=== PATIENT | female | born 1955 | race Caucasian/White ===

== ENCOUNTER 2024-06-16 15:07 | Inpatient (IN) | payer OTHER ==
[2024-06-16 15:24] VITALS: BMI 37.0
[2024-06-16 15:57] VITALS: O2SAT 97
[2024-06-16] MEDS ORDERED: DIPHENHYDRAMINE 25 MG TAB/CAP PO PRN (16:49)
--- NOTE | 2024-06-16 16:57 | P.HP ---
Certification for Inpatient Patient admitted to: Inpatient With expected LOS: >2 Midnights Practitioner: I am a practitioner with admitting privileges, knowledge of patient current condition, hospital course, and medical plan of care. Services: Services provided to patient in accordance with Admission requirements found in Title 42 Section 412.3 of the Code of Federal Regulations Patient History Date of Service: 06/16/24 Primary Care Provider: Trey Reason for admission: osteomyelitis of the right heel History of Present Illness: Patient was being seen in the [facility] wound care center by Dr. Calzada. She had an MRI done at [facility] which showed osteomyelitis. Dr. Calzada took a tissue cultures. I was called for the antibiotic care. Decided to direct admit her and start iv antibiotics. She has diabetic neuropathy. Which makes her more of a high risk Allergies morphine Allergy (Verified 09/04/17 08:35) hives, N/V Home Medications: Diphenhydramine [Benadryl Tab/Cap] 25 mg PO PRN PRN 07/09/17 Metformin HCl [Glucophage] 1,000 mg PO BID 07/09/17 Acetaminophen with Codeine [Tylenol with Codeine #4 Tablet] 1 each PO TID PRN 09/03/17 Gabapentin [Neurontin] 900 mg PO TID 09/03/17 Dapagliflozin Propanediol [Farxiga] 5 mg PO DAILY 06/16/24 Meloxicam 7.5 mg PO BID 06/16/24 Pregabalin 75 mg PO DAILY 06/16/24 Sertraline [Zoloft] 50 mg PO DAILY 06/16/24 - Past Medical/Surgical History Has patient received pneumonia vaccine in the past: Yes Diabetic: Yes -: DM -: Neuropathy -: Insomnia -: hysterectomy 2004 -: nerve surgery r/t spine - Family History Mother -: Diabetes, Cancer Notes: hepatic CA Father -: Heart disease, Lung disease, Cancer Notes: lung CA Sister -: Lung disease, Cancer Notes: lung CA - Social History Smoking Status: Never smoker Alcohol use: No CD- Drugs: No Caffeine use: Yes Place of Residence: Home Review of Systems 10-point ROS is otherwise unremarkable Integumentary: Other (diabetic ulcer) Physical Examination - Physical Exam General: Alert, In no apparent distress HEENT: Atraumatic, PERRLA, Mucous membr. moist/pink, EOMI, Sclerae nonicteric Neck: Supple, 2+ carotid pulse no bruit, No LAD, Without JVD or thyroid abnormality Respiratory: Clear to auscultation bilaterally, Normal air movement Cardiovascular: Regular rate/rhythm, Normal S1 S2 Gastrointestinal: Normal bowel sounds, No tenderness Musculoskeletal: No tenderness Integumentary: No rashes, Diabetic ulcer Neurological: Normal gait, Normal speech, Normal strength at 5/5 x4 extr, Normal tone, Normal affect Lymphatics: No axilla or inguinal lymphadenopathy Assessment and Plan - Problems (Diagnosis) (1) Osteomyelitis due to type 2 diabetes mellitus Current Visit: Yes Status: Acute Plan: Start unasyn. get her records from [facility]. Will consult and Dr. Dominguez. I don't believe she will need surgery. Will lplace a picc line. Need to get cultures to pick appropriate wound care (2) Type 2 diabetes mellitus with diabetic neuropathy, unspecified Current Visit: Yes Status: Acute Plan: will start her on her home metformin. Carb controlled diet. ISS to cover. will check an A1c on the patient Qualifiers: Diabetes mellitus chcf insulin use: with intermission coordinator use Qualified Code(s): E11.40 - Type 2 diabetes mellitus with diabetic neuropathy, unspecified; Z79.4 - half-way (current) use of insulin - Advance Directives Does patient have a Living Will: No Does patient have a Durable POA for Healthcare: No - Code Status/Comfort Care Code Status Assessed: Yes Code Status: Full Code Physician Review: Patient Assessed, Agree with Above Assessment and Plan Critical Care: No Time Spent Managing Pts Care (In Minutes): 75
[2024-06-16] MEDS ORDERED: ENOXAPARIN 40 MG/0.4 ML SQ SCH (17:00)
[2024-06-16] MEDS ORDERED: AMPICILLIN/SULBACT 1.5 GM in NA CHLORIDE 0.9% 100 ML IVPB SCH (17:00)
[2024-06-16] MEDS: METFORMIN HCL 500 MG TAB PO SCH (17:07)
[2024-06-16] MEDS: NA CHLORIDE 0.9% 1,000 ML IV SCH (17:08)
[2024-06-16] MEDS: HYDROMORPHONE HCL 0.5 MG/0.5 ML INJ IV PRN (17:08)
--- NOTE | 2024-06-16 18:15 | RAD REPORT ---
EXAMINATION: XR Foot Right 3 View CLINICAL INDICATION: Female, 69 years old. [facility] MAIN osteomyelitis TECHNIQUE: 3 view radiographs of the right foot were obtained. COMPARISON: 04/29/2022 FINDINGS: Stable alignment of the calcaneus with residual deformity following healing fractures along the proximal body, with some depressed fragments along the middle to posterior talocalcaneal facets. Soft tissue swelling at the sole of the foot. Skin irregularity, wound, and hyperdense debris at the sole of the posterior hindfoot, with underlying some calcaneal cortical irregularity along the plantar aspect, seen only on the lateral view, apparent. Hammertoe deformities of the toes. Degen erative changes of the midfoot, and first metatarsophalangeal articulation up to moderate. IMPRESSION: Calcaneal fracture malunion as above. Osseous irregularity along the plantar aspect of the mid calcaneus, may reflect sequelae of fracture healing versus mild changes of osteomyelitis. MRI would provide improved assessment.
[2024-06-16] MEDS: AMPICILLIN/SULBACT 3 GM in NA CHLORIDE 0.9% 100 ML IVPB SCH (18:23)
[2024-06-16] MEDS: MELOXICAM 7.5 MG TAB PO SCH (20:41)
[2024-06-16] MEDS: Mupirocin NASAL 2 APPL/1 GM TUBE NAS SCH (20:41)
[2024-06-16] MEDS: GABAPENTIN 300 MG CAP PO SCH (20:41)
[2024-06-16] MEDS: INSULIN REGULAR (HUMAN) 100 UNIT/ML SQ SCH (20:41)
--- NOTE | 2024-06-16 20:50 | RAD REPORT ---
EXAMINATION: ONE VIEW CHEST XR CLINICAL INDICATION: Female, 69 years old.,Verify PICC placement TECHNIQUE: Frontal chest projection is submitted. Examination is limited by patient positioning and t echnique. COMPARISON: None. FINDINGS: Right arm PICC with tip projecting at the superior cavoatrial junction. The lungs are well inflated a nd clear. No pneumothorax or sizable effusion. The heart is normal in size. Mediastinal contours are unremarkable. IMPRESSION: Satisfactory right arm PICC position. No acute intrathoracic abnormalities.
[2024-06-16] MEDS: TRAZODONE 50 MG TABLET PO SCH (21:15)
[2024-06-17] MEDS: AMPICILLIN/SULBACT 3 GM in NA CHLORIDE 0.9% 100 ML IV SCH ×2 (00:52→16:08)
[2024-06-17] MEDS: PANTOPRAZOLE 40MG TABLET PO SCH (06:16)
[2024-06-17 06:52] LABS: Absolute Basophils 0.1 K/uL (0-0.5); Absolute Eosinophils 0.1 K/uL (0-0.5); Absolute Lymphocytes (CBC) 2.4 K/uL (0.7-4.9); Absolute Monocytes 0.4 K/uL (0.1-1.3); Absolute Neutrophil 2.4 K/uL (1.8-8.0); Basophils % 1.3 % (0-1.3); Eosinophils % 2.4 % (0-4.4); Hematocrit 41.4 % (36.0-45.0); Hemoglobin 13.9 g/dL (12.0-15.0); Lymphocytes % 43.9 % (15.3-44.8); MCH 29.1 pg (27.0-35.0); MCHC 33.5 g/dL (32.0-36.0); MCV 86.6 fL (80-100); MPV 6.4 fL (7.6-11.3); Neutrophils % 45.4 % (41.7-73.7); Nucleated Red Blood Cells % 0.2 % (0-0); Platelets 294 thou/uL (152-406); RBC Red Blood Cell Count 4.78 M/uL (3.86-4.86); Red Cell Distribution Width 14.1 % (12.1-15.2)
[2024-06-17 07:12] LABS: Albumin 3.2 g/dL (3.4-5.0); Albumin/Globulin Ratio 0.7 (1.1-1.8); Anion Gap 9.1 mEq/L (5.0-15.0); Bilirubin Total 0.7 mg/dL (0.2-1.0); Globulin 4.3 g/dL (2.3-3.5); Potassium 4.1 mEq/L (3.5-5.1); Protein, Total 7.5 g/dL (6.4-8.2); Thyroid Stimulating Hormone 1.33 uIU/mL (0.358-3.740)
[2024-06-17] MEDS: ENOXAPARIN 40 MG/0.4 ML SQ SCH (08:13)
[2024-06-17] MEDS: SERTRALINE HCL 50 MG TAB PO SCH (08:14)
[2024-06-17] MEDS: PREGABALIN 75 MG CAP PO SCH (08:14)
--- NOTE | 2024-06-17 08:36 | P.CNS ---
Date of Consult: 06/17/24 Reason for Consult: right heel wound Primary Care Provider: Trey Chief Complaint: osteomyelitis of the right heel Allergies morphine Allergy (Verified 09/04/17 08:35) hives, N/V Home Medications: Diphenhydramine [Benadryl Tab/Cap] 25 mg PO PRN PRN 07/09/17 Metformin HCl [Glucophage] 1,000 mg PO BID 07/09/17 Acetaminophen with Codeine [Tylenol with Codeine #4 Tablet] 1 each PO TID PRN 09/03/17 Gabapentin [Neurontin] 900 mg PO TID 09/03/17 Dapagliflozin Propanediol [Farxiga] 5 mg PO DAILY 06/16/24 Meloxicam 7.5 mg PO BID 06/16/24 Pregabalin 75 mg PO DAILY 06/16/24 Sertraline [Zoloft] 50 mg PO DAILY 06/16/24 - Past Medical/Surgical History Diabetic: Yes -: DM -: Neuropathy -: Insomnia -: hysterectomy 2004 -: nerve surgery r/t spine - Family History Mother Medical History: Diabetes, Cancer Notes: hepatic CA Father Medical History: Heart disease, Lung disease, Cancer Notes: lung CA Sister Medical History: Lung disease, Cancer Notes: lung CA - Social History Alcohol use: No CD- Drugs: No Caffeine use: Yes Place of Residence: Home Review of Systems 10-point ROS is otherwise unremarkable Physical Examination Temp Pulse Resp BP Pulse Ox 96.7 F L 84 16 116/64 95 06/17/24 04:00 06/17/24 04:00 06/17/24 08:15 06/17/24 04:00 06/17/24 08:15 General: Alert, In no apparent distress, Oriented x3 Cardiovascular: No edema, Normal pulses Capillary refill: <2 Seconds Musculoskeletal: No clubbing, No swelling, No contractures, No erythema, No tenderness, No warmth Integumentary: No rashes, Diabetic ulcer (ulceration right plantar heel with large granulation, undermining at 12:00, no purulence) Neurological: Abnormal sensation (absent proprioceptive and protective sensations bilateral lower extremity) Laboratory Data (last 24 hrs) 06/17/24 06/17/24 06:37 06:37 WBC 5.40 Hgb 13.9 Hct 41.4 Plt Count 294 Sodium 137 Potassium 4.1 BUN 13 Creatinine 0.54 L Glucose 145 H Total Bilirubin 0.7 AST 11 L ALT 19 Alkaline Phosphatase 67 Imagings Data: Previous mri positive for chronic osteomyelitis - Problems (1) Osteomyelitis due to type 2 diabetes mellitus Current Visit: Yes Status: Acute (2) Type 2 diabetes mellitus with diabetic neuropathy, unspecified Current Visit: Yes Status: Acute Qualifiers: Diabetes mellitus button station worker insulin use: with button station worker use Qualified Code(s): E11.40 - Type 2 diabetes mellitus with diabetic neuropathy, unspecified; Z79.4 - prison (current) use of insulin Conclusions/Impression: 1. PAcking of wound with vashe wet to dry daily 2. iv antibiotics for 6 weeks 3. Patient would benefit from hyperbaric oxygen therapy 4. Discussed wound vac but patient doesn't feel that she could be nonweightbearing to right heel
--- NOTE | 2024-06-17 08:41 | P.PN ---
Subjective Date of Service: 06/17/24 Primary Care Provider: Trey Chief Complaint: osteomyelitis of the right heel Subjective: No new changes Review of Systems 10-point ROS is otherwise unremarkable Physical Examination - Vital Signs Temperature: 96.7 F Blood Pressure: 116/64 Pulse: 84 Respirations: 16 Pulse Ox (%): 95 - Physical Exam General: Alert, In no apparent distress HEENT: Atraumatic, PERRLA, EOMI Neck: Supple, JVD not distended Respiratory: Clear to auscultation bilaterally, Normal air movement Cardiovascular: Regular rate/rhythm, Normal S1 S2 Gastrointestinal: Normal bowel sounds, No tenderness Musculoskeletal: No tenderness Integumentary: No rashes Neurological: Normal speech, Normal tone, Normal affect Lymphatics: No axilla or inguinal lymphadenopathy - Studies Laboratory Data (last 24 hrs) 06/17/24 06/17/24 06:37 06:37 WBC 5.40 Hgb 13.9 Hct 41.4 Plt Count 294 Sodium 137 Potassium 4.1 BUN 13 Creatinine 0.54 L Glucose 145 H Total Bilirubin 0.7 AST 11 L ALT 19 Alkaline Phosphatase 67 Assessment And Plan - Current Problems (Diagnosis) (1) Osteomyelitis due to type 2 diabetes mellitus Current Visit: Yes Status: Acute Plan: Start unasyn. get her records from [facility]. Will consult and Dr. Dominguez. I don't believe she will need surgery. Will lplace a picc line. Need to get cultures to pick appropriate wound care (2) Type 2 diabetes mellitus with diabetic neuropathy, unspecified Current Visit: Yes Status: Acute Plan: will start her on her home metformin. Carb controlled diet. ISS to cover. will check an A1c on the patient Qualifiers: Diabetes mellitus terminal worker insulin use: with group home use Qualified Code(s): E11.40 - Type 2 diabetes mellitus with diabetic neuropathy, unspecified; Z79.4 - ocean transportation intermediary (current) use of insulin Discharge Plan: Home Plan to discharge in: 24 Hours - Code Status/Comfort Care Code Status Assessed: No Physician Review: Patient Assessed, Agree with Above Assessment and Plan Critical Care: No Time Spent Managing PTS Care (In Minutes): 20
[2024-06-17] MEDS: DAPAGLIFLOZIN PROPANEDIOL 5 MG PO SCH (09:00)
[2024-06-17] MEDS: ONDANSETRON 4 MG/2 ML VIAL IV PRN (13:36)
[2024-06-17] MEDS: CODEINE 30MG/APAP 300MG TAB PO PRN (13:45)
--- NOTE | 2024-06-17 19:13 | CON ---
Date of Consultation: 06/17/2024 History Of Present Illness: Ms. Villegas is a female that we know since the patient was in [facility], found to have an open wound on the right heel area. Then, patient was seen 2 days ago at the [facility], obtained an MRI that shows osteomyelitis. I discussed the case with Dr. Yang, the primary doctor about the ways how to start her on IV antibiotics. The patient admitted to the [facility] for IV antibiotics and options. Surgical consult was obtained. Past Medical History: Include diabetes, neuropathy, insomnia. Past Surgical History: Include hysterectomy. Family History: Diabetes. Social History: She does not smoke. She does not drink alcohol. Allergies: REVIEWED. Medications: Reviewed. Review of Systems: Right heel open ulcer. No shortness of breath. No chest pain. No fever. Review of systems 10 poin ts otherwise unremarkable. Physical Examination: General: Reviewed. Patient is awake and alert. HEENT: Pupils are equal and reactive, anicteric. Neck: Supple. Abdomen: Soft and depressible. Integumentary: Shows the right plantar heel ulcer all the way down to the calcaneus bone. No purule nt discharge. Good granulation tissue. Imaging: MRI shows osteomyelitis of the right calcaneus region. I do want the result. We have them at [facility] [place]. Blood work reviewed. Plan: From the surgical standpoint, continue same dressing changes and we will follow up the patient at the [facility] when discharged. We rediscussed with her not only IV antibiotics treatm ent for osteomyelitis, but the possibility of hyperbaric treatment. The pros and cons discussed with the patient. We are not ready for that yet. We are going to give the antibiotics a chance. She ma y need a PICC line and also a Home Health. HM/MODL Voice ID: [id number] Report ID: [id number]
[2024-06-18 06:58] LABS: Absolute Eosinophils 0.1 K/uL (0-0.5); Absolute Lymphocytes (CBC) 1.7 K/uL (0.7-4.9); Absolute Monocytes 0.3 K/uL (0.1-1.3); Absolute Neutrophil 1.7 K/uL (1.8-8.0); Basophils % 1.1 % (0-1.3); Eosinophils % 3.1 % (0-4.4); Hemoglobin 12.9 g/dL (12.0-15.0); Lymphocytes % 43.9 % (15.3-44.8); MCH 28.8 pg (27.0-35.0); MCV 87.3 fL (80-100); MPV 6.4 fL (7.6-11.3); Monocytes % 7.2 % (3.3-12.3); Neutrophils % 44.7 % (41.7-73.7); Nucleated Red Blood Cells % 0.2 % (0-0); Platelets 256 thou/uL (152-406); RBC Red Blood Cell Count 4.46 M/uL (3.86-4.86)
[2024-06-18 07:19] LABS: ALT/SGPT 20 U/L (13-56); Albumin 2.9 g/dL (3.4-5.0); Albumin/Globulin Ratio 0.7 (1.1-1.8); Alkaline Phosphatase 62 U/L (45-117); Anion Gap 7.8 mEq/L (5.0-15.0); BUN Blood Urea Nitrogen 11 mg/dL (7-18); Bicarbonate 25 mEq/L (21-32); Bilirubin Total 0.4 mg/dL (0.2-1.0); Globulin 3.9 g/dL (2.3-3.5); Glomerular Filtration Rate 103 ml/min (=/>90); Glucose Level 141 mg/dL (74-106); Potassium 3.8 mEq/L (3.5-5.1); Protein, Total 6.8 g/dL (6.4-8.2); Sodium Level 140 mEq/L (136-145)
[2024-06-18 07:22] LABS: AST/SGOT < 10 U/L (15-37)
--- NOTE | 2024-06-18 13:12 | P.PN ---
Subjective Date of Service: 06/18/24 Primary Care Provider: Trey Chief Complaint: osteomyelitis of the right heel Subjective: No new changes Review of Systems 10-point ROS is otherwise unremarkable Physical Examination - Vital Signs Temperature: 97.8 F Blood Pressure: 137/71 Pulse: 73 Respirations: 16 Pulse Ox (%): 96 - Physical Exam General: Alert, In no apparent distress HEENT: Atraumatic, PERRLA, EOMI Neck: Supple, JVD not distended Respiratory: Clear to auscultation bilaterally, Normal air movement Cardiovascular: Regular rate/rhythm, Normal S1 S2 Gastrointestinal: Normal bowel sounds, No tenderness Musculoskeletal: No tenderness Integumentary: No rashes Neurological: Normal speech, Normal tone, Normal affect Lymphatics: No axilla or inguinal lymphadenopathy - Studies Laboratory Data (last 24 hrs) 06/18/24 06/18/24 06:14 06:14 WBC 3.90 L Hgb 12.9 Hct 39.0 Plt Count 256 Sodium 140 Potassium 3.8 BUN 11 Creatinine 0.49 L Glucose 141 H Total Bilirubin 0.4 AST < 10 L ALT 20 Alkaline Phosphatase 62 Assessment And Plan - Current Problems (Diagnosis) (1) Osteomyelitis due to type 2 diabetes mellitus Current Visit: Yes Status: Acute Plan: Start unasyn. get her records from [facility]. Will consult and Dr. Dominguez. I don't believe she will need surgery. Will lplace a picc line. Need to get cultures to pick appropriate wound care (2) Type 2 diabetes mellitus with diabetic neuropathy, unspecified Current Visit: Yes Status: Acute Plan: will start her on her home metformin. Carb controlled diet. ISS to cover. will check an A1c on the patient Qualifiers: Diabetes mellitus long term care pharmacist insulin use: with long term care pharmacist use Qualified Code(s): E11.40 - Type 2 diabetes mellitus with diabetic neuropathy, unspecified; Z79.4 - intermediate (current) use of insulin Discharge Plan: Home Plan to discharge in: 24 Hours - Code Status/Comfort Care Code Status Assessed: No Physician Review: Patient Assessed, Agree with Above Assessment and Plan Critical Care: No Time Spent Managing PTS Care (In Minutes): 20
[2024-06-19 06:58] LABS: Absolute Eosinophils 0.1 K/uL (0-0.5); Absolute Lymphocytes (CBC) 1.7 K/uL (0.7-4.9); Absolute Monocytes 0.2 K/uL (0.1-1.3); Absolute Neutrophil 1.7 K/uL (1.8-8.0); Basophils % 1.1 % (0-1.3); Eosinophils % 3.5 % (0-4.4); Hematocrit 38.7 % (36.0-45.0); Hemoglobin 12.9 g/dL (12.0-15.0); Lymphocytes % 44.5 % (15.3-44.8); MCH 29.1 pg (27.0-35.0); MCHC 33.4 g/dL (32.0-36.0); MCV 87.1 fL (80-100); MPV 6.3 fL (7.6-11.3); Monocytes % 6.4 % (3.3-12.3); Neutrophils % 44.5 % (41.7-73.7); Nucleated Red Blood Cells % 0.1 % (0-0); Platelets 276 thou/uL (152-406); RBC Red Blood Cell Count 4.44 M/uL (3.86-4.86)
[2024-06-19 07:14] LABS: ALT/SGPT 17 U/L (13-56); Albumin/Globulin Ratio 0.8 (1.1-1.8); Alkaline Phosphatase 58 U/L (45-117); Anion Gap 6.6 mEq/L (5.0-15.0); BUN Blood Urea Nitrogen 10 mg/dL (7-18); Bicarbonate 27 mEq/L (21-32); Bilirubin Total 0.3 mg/dL (0.2-1.0); Globulin 3.9 g/dL (2.3-3.5); Glomerular Filtration Rate 107 ml/min (=/>90); Glucose Level 131 mg/dL (74-106); Potassium 3.6 mEq/L (3.5-5.1); Protein, Total 6.9 g/dL (6.4-8.2); Sodium Level 141 mEq/L (136-145)
[2024-06-19 07:30] LABS: AST/SGOT < 10 U/L (15-37)
--- NOTE | 2024-06-19 10:13 | P.DS ---
Admission Date: 06/16/24 Discharge Date: 06/19/24 Primary Care Provider: Trey Disposition: DC HOME/HOME HEALTH CARE Discharge Condition: GOOD Reason for Admission: osteomyelitis of the right heel - Problems (1) Osteomyelitis due to type 2 diabetes mellitus Current Visit: Yes Status: Acute (2) Type 2 diabetes mellitus with diabetic neuropathy, unspecified Current Visit: Yes Status: Acute Qualifiers: Diabetes mellitus exterminator helper termite insulin use: with exterminator helper termite use Qualified Code(s): E11.40 - Type 2 diabetes mellitus with diabetic neuropathy, unspecified; Z79.4 - buttermaker (current) use of insulin Brief History of Present Illness: Patient was being seen in the [facility] wound care center by Dr. Calzada. She had an MRI done at [facility] which showed osteomyelitis. Dr. Calzada took a tissue cultures. I was called for the antibiotic care. Decided to direct admit her and start iv antibiotics. She has diabetic neuropathy. Which makes her more of a high risk Hospital Course: Patient was admitted after MRI was shown on outpatient MRI. We do not have cultures. Will start her on levaquin, as per the [place] [facility]. Will have her follow up with Me and Dr. Calzada. Thank you for allowing me take part in the patients care. Vital Signs/Physical Exam: Temp Pulse Resp BP Pulse Ox 97.9 F 69 16 156/74 H 100 06/19/24 08:00 06/19/24 08:00 06/19/24 08:00 06/19/24 08:00 06/19/24 08:00 General: Alert, In no apparent distress HEENT: Atraumatic, PERRLA, EOMI Neck: Supple, JVD not distended Respiratory: Clear to auscultation bilaterally, Normal air movement Cardiovascular: Regular rate/rhythm, Normal S1 S2 Gastrointestinal: Normal bowel sounds, No tenderness Musculoskeletal: No tenderness Integumentary: No rashes Neurological: Normal speech, Normal tone, Normal affect Lymphatics: No axilla or inguinal lymphadenopathy Laboratory Data at Discharge: WBC 3.80 thou/uL (4.3-10.9) L 06/19/24 06:34 Hgb 12.9 g/dL (12.0-15.0) 06/19/24 06:34 Hct 38.7 % (36.0-45.0) 06/19/24 06:34 Plt Count 276 thou/uL (152-406) 06/19/24 06:34 Sodium 141 mEq/L (136-145) 06/19/24 06:34 Potassium 3.6 mEq/L (3.5-5.1) 06/19/24 06:34 BUN 10 mg/dL (7-18) 06/19/24 06:34 Creatinine 0.42 mg/dL (0.55-1.02) L 06/19/24 06:34 Glucose 131 mg/dL (74-106) H 06/19/24 06:34 Total Bilirubin 0.3 mg/dL (0.2-1.0) 06/19/24 06:34 AST < 10 U/L (15-37) L 06/19/24 06:34 ALT 17 U/L (13-56) 06/19/24 06:34 Alkaline Phosphatase 58 U/L (45-117) 06/19/24 06:34 Home Medications: Diphenhydramine [Benadryl Tab/Cap] 25 mg PO PRN PRN 07/09/17 Metformin HCl [Glucophage] 1,000 mg PO BID 07/09/17 Acetaminophen with Codeine [Tylenol with Codeine #4 Tablet] 1 each PO TID PRN 09/03/17 Gabapentin [Neurontin] 900 mg PO TID 09/03/17 Dapagliflozin Propanediol [Farxiga] 5 mg PO DAILY 06/16/24 Meloxicam 7.5 mg PO BID 06/16/24 Pregabalin 75 mg PO DAILY 06/16/24 Sertraline [Zoloft] 50 mg PO DAILY 06/16/24 Physician Discharge Instructions: HOME HEALTH: [facility] [address] [place] [address] P: [phone] [facility]ION [facility]: [address] [address] P/ Erika: [phone] Diet: ADA Activity: Ad joel Followup: Ray Yang MD [Primary Care Provider] - 1 Week Time spent managing pt's care (in minutes): 30
[2024-06-19] MEDS: Levofloxacin 750mg IV 750 MG/150 ML BAG IV SCH (11:20)
[2024-06-19 12:57] VITALS: BP 166/77; TEMP 98.4
== END 2024-06-19 14:57 | disposition home health service (06) | DRG 638 ==
LOC: 2ND 15:07
PROVIDERS: ADMIT Internal Medicine; ATTEND Internal Medicine
PROC: 02HV33Z Insertion of Infusion Device into Superior Vena Cava, Percutaneous Approach (ICD-10-PCS; principal; 2024-06-16)
DX: E11.69 Type 2 diabetes mellitus with other specified complication (principal); M86.171 Other acute osteomyelitis, right ankle and foot; E11.40 Type 2 diabetes mellitus with diabetic neuropathy, unspecified; Z88.5 Allergy status to narcotic agent; Z79.84 Long term (current) use of oral hypoglycemic drugs; Z79.899 Other long term (current) drug therapy; Z90.710 Acquired absence of both cervix and uterus
CPT/HCPCS: 36415; 36569; 71045; 80053; 82947; 83036; 84443; 85025; 87040; J0295; J1171; J1650; J2405; J7030